=== PATIENT | male | born 2005 | race African-American/Black ===

== ENCOUNTER 2025-07-11 02:20 | Emergency (ER) | payer OTHER ==
[~2025-07-11] VITALS: Ht 182.9 cm; Wt 74.2 kg
[2025-07-11] MEDS: DERMABOND TOPICAL SKIN ADHESIVE TOP ONE (07:32)
[2025-07-11 08:05] VITALS: BP 122/56; TEMP 97.9; O2SAT 100
== END 2025-07-11 08:08 | disposition home or self-care (01) ==
LOC: M ED 02:20
DX: S01.81XA Laceration without foreign body of other part of head, initial encounter (principal); W22.8XXA Striking against or struck by other objects, initial encounter; Y92.003 Bedroom of unspecified non-institutional (private) residence as the place of occurrence of the external cause; Y93.9 Activity, unspecified; Y99.9 Unspecified external cause status